=== PATIENT | male | born 1980 | race Caucasian/White ===

== ENCOUNTER 2016-12-08 16:01 | Observation (INO) | payer BC ==
[~2016-12-08] VITALS: Ht 180.3 cm; Wt 93.5 kg
[2016-12-08] MEDS ORDERED: DULERA 200 MCG/13 GM IH (16:11)
[2016-12-08 17:16] LABS: EOSINOPHIL (%) 0.3 % (0-5); HEMATOCRIT 41.4 % (38.0-50.0); IMMATURE GRANULOCYTE (%) 0.2 % (0.0-0.7); IMMATURE GRANULOCYTE COUNT 0.2 K/uL; LYMPHOCYTE COUNT 0.4 K/uL (1.0-2.8); MCH 30.3 PG (29.0-34.0); MCHC 35.5 G/DL (30.0-36.0); MCV 85.4 FL (86-99); MEAN PLAT.VOLUME 9.7 uM^3 (9.0-12.4); MONOCYTE (%) 7.7 % (3-12); MONOCYTE COUNT 0.8 K/uL (0-0.8); NEUTROPHIL (%) 87.2 % (45-76); NEUTROPHIL COUNT 8.6 K/uL (1.8-6.4); PLATELET COUNT 218 K/uL (156-360); RBC DIS.WIDTH-CV 13.8 % (11.8-14.6); RBC DIS.WIDTH-SD 42.3 % (39-53); RED BLOOD COUNT 4.85 M/uL (4.00-5.50); WHITE BLOOD COUNT 9.8 K/uL (4.1-10.2)
[2016-12-08 17:26] LABS: CHLORIDE 107 mEq/L (99-109); POTASSIUM 3.7 mEq/L (3.7-5.4); SODIUM 141 mEq/L (136-147)
[2016-12-08 17:28] LABS: GLUCOSE 101 mg/dL (70-99)
[2016-12-08 17:29] LABS: ANION GAP 9 MEQ/L (2-14)
[2016-12-08 17:30] LABS: TOTAL BILIRUBIN 0.4 mg/dL (0.0-1.0)
[2016-12-08 17:31] LABS: ALKALINE PHOSPHATASE 48 IU/L (3-129)
[2016-12-08 17:33] LABS: GFR ESTIMATE (CALCULATED) > 59 mL/min/; UREA NITROGEN (BUN) 13 mg/dL (9-23)
[2016-12-08 17:37] LABS: TROP-I INTERPRETATION NEGATIVE; TROPONIN-I < 0.01 ng/mL (0.0-0.30)
[2016-12-08 20:34] VITALS: BP 115/63
[2016-12-08 23:58] VITALS: BP 117/57
[2016-12-09 04:37] VITALS: BP 109/61
[2016-12-09 05:11] LABS: INFLUENZA A VIRAL ANTIGEN NEGATIVE; INFLUENZA B VIRAL ANTIGEN NEGATIVE
[2016-12-09 06:25] LABS: MCH 30.3 PG (29.0-34.0); MCHC 35.3 G/DL (30.0-36.0); MCV 85.8 FL (86-99); MEAN PLAT.VOLUME 10.3 uM^3 (9.0-12.4); PLATELET COUNT 187 K/uL (156-360); RBC DIS.WIDTH-CV 13.6 % (11.8-14.6); RBC DIS.WIDTH-SD 42.3 % (39-53); RED BLOOD COUNT 4.66 M/uL (4.00-5.50); WHITE BLOOD COUNT 10.5 K/uL (4.1-10.2)
[2016-12-09 06:48] LABS: ANION GAP 9 MEQ/L (2-14); CHLORIDE 106 MEQ/L (99-109); GFR ESTIMATE (CALCULATED) > 59 mL/min/; GLUCOSE 150 mg/dL (70-99); SAMPLE HEMOLYSIS CHECK 0; SAMPLE ICTERIC CHECK 0; SAMPLE LIPEMIA CHECK 0; SODIUM 139 MEQ/L (136-147); UREA NITROGEN (BUN) 14 mg/dL (9-23)
[2016-12-09 07:50] VITALS: BP 117/74; BP 17/74
[2016-12-09 11:34] VITALS: BP 124/58
[2016-12-09] MEDS ORDERED: CEFDINIR300 MG PO (12:31)
[2016-12-09] MEDS ORDERED: AZITHROMYCIN500 M1 PO (12:31)
[2016-12-09] MEDS ORDERED: PREDNISONE10 M1 PO (12:31)
[2016-12-09] MEDS ORDERED: OMEPRAZOLE20 MG PO (12:31)
[2016-12-09] MEDS ORDERED: MOTRIN600 MG PO (12:49)
[2016-12-09] MEDS ORDERED: TYLENOL REGULA325 MG PO (12:49)
== END 2016-12-09 14:29 | disposition home or self-care (01) ==
LOC: EME 16:01 → EDBD 16:01 → EDOF 18:48 → 5WEST 18:48 → EDOF 18:48 → 5WEST 20:06
PROVIDERS: Emergency Medicine; Hospitalist
DX: R09.02 Hypoxemia (principal); J84.9 Interstitial pulmonary disease, unspecified; R91.8 Other nonspecific abnormal finding of lung field
CPT/HCPCS: 71020; 71275; 80048; 80053; 83605; 84484; 85025; 85027; 87502; 93005; 94640; 94640 76; 94799; 99202; 99281; 99285; G0378; J0456; J0696; J1885; J2930; J3010; J7050